=== PATIENT | female | born 1970 | race Caucasian/White ===

== ENCOUNTER → 2021-08-30 08:30 | Outpatient (CLI) | payer BC, SELFPAY ==
[2021-08-30 14:11] LABS: SARS-CoV-2 RNA PCR Negative
== END ==
PROVIDERS: PCP Family Medicine; Visit Provider Internal Medicine Gastroenterology
DX: Z01.812 Encounter for preprocedural laboratory examination (principal); Z20.822 Contact with and (suspected) exposure to COVID-19
CPT/HCPCS: C9803; U0003; U0005

== ENCOUNTER 2021-08-31 13:24 | Outpatient (CLI) | payer BC, SELFPAY ==
--- NOTE | ~2021-08-31 | MR_ITS ---
EXAMINATION: MR brain/brain stem wo/w con DATE: 08/31/2021 14:29 INDICATION: Altered mental status, unspecified. TECHNIQUE: Magnetic resonance imaging (MRI) of the brain and brainstem was performed without and with 12 mL MultiHance intravenous contrast. COMPARISON: None. FINDINGS: There is no intracranial hemorrhage, acute infarction, or abnormal intracranial mass lesion . There is a developmental venous anomaly in left frontal lobe. The ventricles are normal in size. Th e orbits are normal. The paranasal sinuses are clear. The mastoid air cells are normal. IMPRESSION: 1. Normal brain. Reviewed, dictated and finalized at location [facility]. IMPRESSION: 1. Normal brain.
== END 2021-08-31 13:25 | disposition home or self-care (01) ==
LOC: ANHIMG 13:30
PROVIDERS: PCP Family Medicine; Visit Provider Family Medicine
DX: R41.82 Altered mental status, unspecified (principal)
CPT/HCPCS: 70553; A9577

== ENCOUNTER 2021-09-03 00:54 | Day surgery (SDC) | payer BC, SELFPAY ==
[2021-08-27 13:21] VITALS: BMI 19.8
--- NOTE | 2021-09-02 15:17 | PM.HPGS ---
History of Present Illness History of Present Illness Consent: Risks, benefits, and alternatives have been discussed and questions answered. Patient agrees to proceed with procedure. Chief complaint: vomiting, nausea Narrative: Marcela Chow is a 51 year old female Referred because of severe nausea . She has not been vomiting. She does get pains in the epigastric area that come and go randomly. This began about 6 weeks ago. Because she has been afraid to eat she has lost about 14 lb. For the past several days she has been only taking Ensure and some soup. Anything more makes her uncomfortable. She tried Pepcid for a while which did not help now for the last 2 weeks she has been taking Prevacid [id number] and also is on Zofran. These are helping somewhat. Review of Systems Review of Systems: All systems reviewed & are unremarkable except as noted in HPI and below PMFSH Past Medical History Medical History Acute alteration in mental status ADD (attention deficit disorder) Anxiety and depression BMI 21.0-21.9, adult Complex regional pain syndrome Failure to thrive Fatigue Hypothyroidism Intractable migraine without aura and with status migrainosus Lyme disease, unspecified Nausea & vomiting Screen for colon cancer Screening for lipid disorders Vitamin B12 deficiency Vitamin D deficiency, unspecified Family History Family History Grandparent Family history of malignant neoplasm of breast Acute myocardial infarction Sibling Family history of lupus erythematosus Father Hypertension Acute myocardial infarction Mother No problems noted. Sibling No problems noted. Other Diabetes mellitus Social History Social History Second hand tobacco smoke exposure: No Alcohol intake: never Substance use: current Substance use type: marijuana Other substance usage details: gummies, medical Living arrangements: with family Gender identity (if verbalized by the patient): Female Spiritual care concerns: No Meds Home Medications and Allergies Home Medications Medication Instructions Recorded Confirmed Type clonazepam 1 mg tablet 1 mg PO .QHS #30 tablet 06/30/21 08/27/21 Rx diazepam 2 mg tablet 2 mg PO BID PRN #30 tablet 07/25/21 08/27/21 Rx tramadol 50 mg tablet 50 mg PO BID PRN #60 tablet 08/13/21 08/27/21 Rx ondansetron 4 mg disintegrating 4 mg PO Q6H PRN #30 tablet 08/24/21 08/27/21 Rx tablet desogestrel-ethinyl estradiol 1 tablet PO DAILY 08/27/21 08/27/21 History [Apri] lansoprazole [Prevacid] 30 mg PO DAILY 08/27/21 08/27/21 History buprenorphine 5 mcg/hour weekly 1 patch TRANSDERMAL Q7D #4 ea 08/28/21 Rx transdermal patch Allergies Allergy/AdvReac Type Severity Reaction Status Date / Time No Known Allergies Allergy Verified 09/03/21 07:47 Exam Const: General: alert Orientation/consciousness: patient oriented x3 Resp: Auscultation: clear to auscultation bilaterally Cardio: Rhythm: regular rhythm GI: GI Palp: Yes Soft to palpation and No Tenderness to palpation present (GI) Neuro: General: patient oriented x3 Assessment and Plan Assessment and plan (1) Nausea & vomiting: Code(s): R11.2 - Nausea with vomiting, unspecified Status: Acute Assessment and Plan: EGD with possible biopsy or dilatation or cautery.
[2021-09-03 07:50] VITALS: BP 129/79; PULSE 87; RESP 16; TEMP 36.3; O2SAT 99
--- NOTE | 2021-09-03 07:53 | SUR.PREOP ---
Pt states she is unable to produce any urine for urine test. Dr. Thompson anesthesiologist notified and urine test waived.
[2021-09-03] MEDS: LACTATED RINGERS 1,000 ML 150 ML IV CONT (08:07)
--- NOTE | 2021-09-03 08:12 | WPDANESEPPF ---
Anes - Initial Pre Proc Eval Procedure: Operation Date: 09/03/21 09:00 Proposed Procedures p Esophagogastroduodenoscopy - Milton Connor MD Date/Time: 09/03/21 08:12 Surgeon: Milton Connor MD Pre Op Diagnosis: vomiting, nausea Patient Data Age: 51 Gender: F Height: 1.75 m Weight: 63.9 kg Last Vital Signs Temp 97.4 F L 09/03/21 07:50 Pulse 87 09/03/21 07:50 Resp 16 09/03/21 07:50 BP 129/79 09/03/21 07:50 Pulse Ox 99 09/03/21 07:50 Allergies Allergy/AdvReac Type Severity Reaction Status Date / Time No Known Allergies Allergy Verified 09/03/21 07:47 Home Medications Medication Instructions Recorded Confirmed Type clonazepam 1 mg tablet 1 mg PO .QHS #30 tablet 06/30/21 08/27/21 Rx diazepam 2 mg tablet 2 mg PO BID PRN #30 tablet 07/25/21 08/27/21 Rx tramadol 50 mg tablet 50 mg PO BID PRN #60 tablet 08/13/21 08/27/21 Rx ondansetron 4 mg disintegrating 4 mg PO Q6H PRN #30 tablet 08/24/21 08/27/21 Rx tablet desogestrel-ethinyl estradiol 1 tablet PO DAILY 08/27/21 08/27/21 History [Apri] lansoprazole [Prevacid] 30 mg PO DAILY 08/27/21 08/27/21 History buprenorphine 5 mcg/hour weekly 1 patch TRANSDERMAL Q7D #4 ea 08/28/21 Rx transdermal patch Patient hx anesthesia problems: none Family hx anesthesia problems: none Results Review: All pre-operative results and documents have been reviewed as part of the pre-operative evaluation. [facility] Past Medical History Medical History Acute alteration in mental status ADD (attention deficit disorder) Anxiety and depression BMI 21.0-21.9, adult Complex regional pain syndrome Failure to thrive Fatigue Hypothyroidism Intractable migraine without aura and with status migrainosus Lyme disease, unspecified Nausea & vomiting Screen for colon cancer Screening for lipid disorders Vitamin B12 deficiency Vitamin D deficiency, unspecified Family History Family History Grandparent Family history of malignant neoplasm of breast Acute myocardial infarction Sibling Family history of lupus erythematosus Father Hypertension Acute myocardial infarction Mother No problems noted. Sibling No problems noted. Other Diabetes mellitus Social History Social History Second hand tobacco smoke exposure: No Alcohol intake: never Substance use: current Substance use type: marijuana Other substance usage details: gummies, medical Living arrangements: with family Gender identity (if verbalized by the patient): Female Spiritual care concerns: No Anes - Eval Final PreProcedure Day of Procedure 09/03/21 08:12 Patient weight: normal Heart: regular rate and rhythm Lungs: clear to auscultation Airway: Mallampati scale class II Neurological: alert and oriented Last oral intake: >/= 8 hours ASA classification: II Emergent: no Anesthetic plan: proceed Anesthesia type and monitoring: general GIVS and standard monitoring Results Review: All pre-operative results and documents have been reviewed as part of the pre-operative evaluation. Informed Consent: The patient's anesthetic plan and its attendant risks and benefits were discussed with the patient/family/POA. Questions were solicited and answers provided to the satisfaction of the patient/family/POA.
[2021-09-03 08:26] VITALS: BP 101/60; PULSE 64; RESP 14; O2SAT 98
[2021-09-03 08:36] VITALS: BP 99/64; PULSE 60; RESP 14; O2SAT 98
[2021-09-03 08:46] VITALS: BP 111/73; PULSE 74; RESP 18; O2SAT 100
== END 2021-09-03 08:56 | disposition home or self-care (01) ==
PROVIDERS: PCP Family Medicine; Visit Provider Internal Medicine Gastroenterology
PROC: 0DJ08ZZ Inspection of Upper Intestinal Tract, Via Natural or Artificial Opening Endoscopic (ICD-10-PCS; CPT 43235; principal; 2021-09-03 09:00)
DX: K29.70 Gastritis, unspecified, without bleeding (principal); E55.9 Vitamin D deficiency, unspecified; E53.8 Deficiency of other specified B group vitamins; F41.8 Other specified anxiety disorders; Z79.891 Long term (current) use of opiate analgesic; F12.90 Cannabis use, unspecified, uncomplicated
CPT/HCPCS: 43239; 87081; 88305; J2001; J2704; J7120

== ENCOUNTER 2021-09-15 14:29 | Outpatient (CLI) | payer BC, SELFPAY ==
--- NOTE | ~2021-09-15 | CT_ITS ---
EXAMINATION: CT abdomen pelvis w con DATE: 09/15/2021 15:30 INDICATION: Abnormal weight loss TECHNIQUE: Computed tomography (CT) of the abdomen and pelvis was performed with 100 CC Omnipaque 300 intravenous contrast. Automated exposure control and iterative reconstruction technique were employe d. Exam dose: 235.97 mGy-cm total exam DLP. COMPARISON: None. FINDINGS: Calcified right lower lobe pulmonary granulomas. No infiltrate or consolidation in the incl uded lower lung zones. Normal heart size. No pericardial or pleural effusion. The liver, gallbladder, bile ducts, spleen, pancreas, pancreatic duct, and adrenal glands and kidneys are unremarkable. No urinary tract calculus or hydroureteronephrosis. The uterus, adnexal areas and urinary bladder are unremarkable. Normal appendix. No bowel obstruction, bowel wall thickening, pneumatosis or intraperitoneal free air . Small fat-containing umbilical hernia. Included skeletal structures are unremarkable. IMPRESSION: No significant abnormal finding Reviewed, dictated and finalized at [facility]. Reviewed, dictated and finalized at location [facility].
== END 2021-09-15 14:30 | disposition home or self-care (01) ==
PROVIDERS: PCP Family Medicine; Visit Provider Internal Medicine Gastroenterology
DX: R63.4 Abnormal weight loss (principal); R10.9 Unspecified abdominal pain
CPT/HCPCS: 74177; Q9967